=== PATIENT | female | born 1940 | race Caucasian/White ===

== ENCOUNTER 2019-03-07 18:38 | Outpatient (CLI) | payer MEDICARE | END 2019-03-07 18:39 | disposition short-term general hospital (02) | LOC: EMS 18:38 | PROVIDERS: ATTEND Surgery | DX: R53.1 Weakness (principal); R42 Dizziness and giddiness; R25.9 Unspecified abnormal involuntary movements | CPT/HCPCS: A0425; A0429 ==

== ENCOUNTER 2022-11-22 08:00 | Outpatient (CLI) | payer MEDICARE, OTHER ==
--- NOTE | 2022-11-22 12:20 | XRAY Report ---
PROCEDURE: Hip 2 View RT INDICATIONS: RIGHT HIP PAIN TECHNIQUE: 2 views of the hip were acquired. COMPARISON: None. FINDINGS: Bones: Marked right hip joint space narrowing with associated osteophytosis, subchondral sclerosis/b one cysts and slight bony deformity. Soft tissues: No suspicious soft tissue calcifications or masses. IMPRESSION: Marked right hip osteoarthritis. Kellgren-Rafael scale of osteoarthritis: 3-4 Reviewed by: Devyn Serrato on 11/22/2022 12:19 PM PDT Approved by: Devyn Serraot on 11/22/2022 12:19 PM PDT Station ID: [id number]
== END 2022-11-22 23:59 | disposition home or self-care (01) ==
LOC: DI.WOS 08:00
PROVIDERS: ATTEND Orthopaedic Surgery
DX: M16.11 Unilateral primary osteoarthritis, right hip (principal)

== ENCOUNTER 2023-08-21 09:21 | Outpatient (CLI) | payer MEDICARE, OTHER ==
--- NOTE | 2023-08-21 23:39 | XRAY Report ---
PROCEDURE: Knee 4 View RT INDICATIONS: BILAT KNEE PAIN TECHNIQUE: 4 views of the knee(s) were acquired. COMPARISON: None. FINDINGS: Bones: No fractures or dislocations. No suspicious bony lesions. 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 Prosthetic elements appear to be in appropriate position. No evide nce of hardware complication. Status post left knee total arthroplasty with prosthetic elements in appropriate position. Soft tissues: No knee joint effusion on the right. No suspicious soft tissue calcifications or yary s. IMPRESSION: Bilateral total knee arthroplasty without evidence of hardware complication. Reviewed by: Arpita Guaman MD on 08/21/2023 10:37 PM [facility] Approved by: Arpita Guaman MD on 08/21/2023 10:37 PM [facility] Station ID: [id number]
== END 2023-08-21 23:59 | disposition home or self-care (01) ==
LOC: DI.WOS 09:21
PROVIDERS: ATTEND Orthopaedic Surgery
DX: M25.561 Pain in right knee (principal); M25.562 Pain in left knee; Z96.653 Presence of artificial knee joint, bilateral

== ENCOUNTER 2024-01-18 22:06 | Outpatient (CLI) | payer MEDICARE, OTHER | END 2024-01-18 22:07 | disposition left against medical advice (07) | LOC: EMS 22:06 | DX: R53.1 Weakness (principal); M25.512 Pain in left shoulder; W05.0XXA Fall from non-moving wheelchair, initial encounter; Y92.009 Unspecified place in unspecified non-institutional (private) residence as the place of occurrence of the external cause ==

== ENCOUNTER 2024-01-20 06:36 | Outpatient (CLI) | payer MEDICARE, OTHER | END 2024-01-20 23:59 | disposition short-term general hospital (02) | LOC: EMS 06:36 | DX: M25.551 Pain in right hip (principal) | CPT/HCPCS: A0425; A0429 ==